=== PATIENT | male | born 1960 | race African-American/Black ===

== ENCOUNTER 2021-01-29 00:02 | Emergency (ER) | payer OTHER, BC ==
[2021-01-29 01:03] VITALS: BP 208/105; PULSE 75; TEMP 98.5; BMI 24.4
[2021-01-29] MEDS ORDERED: ACETAMINOPHEN 325 MG TABLET (FP) PO ONE (01:49)
== END 2021-01-29 02:48 | disposition home or self-care (01) ==
LOC: JER 00:02
DX: S09.90XA Unspecified injury of head, initial encounter (principal); W22.8XXA Striking against or struck by other objects, initial encounter
CPT/HCPCS: 70450-TC; 70486-TC; 72125-TC; 99284-25

== ENCOUNTER 2023-04-12 13:25 | Emergency (ER) | payer OTHER, BC ==
[2023-04-12 13:32] VITALS: RESP 16; TEMP 98.6; BMI 23.7
[2023-04-12] MEDS ORDERED: ACETAMINOPHEN 325 MG TABLET (FP) ONE (14:45)
[2023-04-12] MEDS: ACETAMINOPHEN 325 MG TABLET (FP) PO ONE (14:55)
[2023-04-12 16:23] VITALS: BP 134/76; PULSE 97
== END 2023-04-12 16:24 | disposition home or self-care (01) ==
LOC: JER 13:25
DX: K40.90 Unilateral inguinal hernia, without obstruction or gangrene, not specified as recurrent (principal); R10.31 Right lower quadrant pain; R22.2 Localized swelling, mass and lump, trunk
CPT/HCPCS: 99283-25

== ENCOUNTER 2023-09-07 01:39 | Emergency (ER) | payer OTHER, BC ==
[2023-09-07 01:48] VITALS: BP 139/85; PULSE 82; RESP 20; TEMP 98.4; BMI 24.3
[2023-09-07] MEDS ORDERED: LIDOCAINE 5% TOPICAL PATCH ONE (03:33)
[2023-09-07] MEDS ORDERED: ACETAMINOPHEN 500 MG TABLET (FP) ONE (03:35)
[2023-09-07] MEDS: LIDOCAINE 5% TOPICAL PATCH TP ONE (03:41)
[2023-09-07] MEDS: ACETAMINOPHEN 500 MG TABLET (FP) PO ONE (03:42)
[2023-09-07 03:52] LABS: EPI CELLS 14 /uL (0-25.1); HYALINE CASTS 4 /uL (0-3.1); PH,URINE 5.5 (5.0-8.0); URINE APPEARANCE CLEAR; URINE BACTERIA 0 /uL (0-1359); URINE BILIRUBIN NEGATIVE (NEGATIVE); URINE COLOR YELLOW; URINE GLUCOSE (UA) NEGATIVE (NEGATIVE); URINE KETONE TRACE (NEGATIVE); URINE LEUK ESTERASE TRACE (NEGATIVE); URINE NITRITE NEGATIVE (NEGATIVE); URINE PROTEIN 1+ (NEGATIVE); URINE RBC 23 /uL (0-23.9); URINE WBC 87 /uL (0-25.8)
[2023-09-07] MEDS ORDERED: LIDOCAINE PATCH REMOVAL MC SCH (22:00)
== END 2023-09-07 05:21 | disposition home or self-care (01) ==
LOC: JER 01:39
DX: N39.0 Urinary tract infection, site not specified (principal); M54.50 Low back pain, unspecified; R39.15 Urgency of urination; R30.0 Dysuria; M79.18 Myalgia, other site
CPT/HCPCS: 81003; 87086; 99283-25

== ENCOUNTER 2024-09-22 17:49 | Emergency (ER) | payer OTHER, BC ==
[2024-09-22 17:55] VITALS: RESP 18; BMI 22.6
[2024-09-22 19:03] LABS: ABSOLUTE IMMATURE GRANULOCYTES 0.02 x10^3/uL (0.0-0.031); BASOPHILS # 0.03 x10^3/uL (0.01-0.08); EOSINOPHIL % 0.5 % (0.8-7.0); EOSINOPHILS # 0.04 x10^3/uL (0.04-0.54); MCHC 32.3 g/dl (32.3-36.5); MEAN CELL VOLUME 98.3 fl (79.0-92.2); MEAN PLT VOLUME 10.1 fl (9.4-12.4); MONOCYTE # 0.69 x10^3/uL (0.30-0.82); MONOCYTE % 8.8 % (5.3-12.2); RDW 13.1 % (12.2-16.4)
[2024-09-22] MEDS ORDERED: ACETAMINOPHEN INJECTION 100 ML ONE (19:40)
[2024-09-22] MEDS: ACETAMINOPHEN 1000 MG/100 ML BAG IVPB ONE (19:45)
[2024-09-22 20:18] LABS: EPI CELLS 1 /uL (0-25.1); HYALINE CASTS 0 /uL (0-3.1); URINE APPEARANCE CLEAR; URINE BACTERIA 2 /uL (0-1359); URINE BILIRUBIN NEGATIVE (NEGATIVE); URINE COLOR YELLOW; URINE GLUCOSE (UA) 3+ (NEGATIVE); URINE KETONE NEGATIVE (NEGATIVE); URINE LEUK ESTERASE NEGATIVE (NEGATIVE); URINE NITRITE NEGATIVE (NEGATIVE); URINE PROTEIN NEGATIVE (NEGATIVE); URINE RBC 8 /uL (0-23.9); URINE UROBILINOGEN 1.0 mg/dL (0.2-1.0); URINE WBC 1 /uL (0-25.8)
[2024-09-22 20:23] LABS: GLUCOSE,RANDOM 107.0 mg/dL (74-106)
[2024-09-22 20:24] LABS: CO2 25.0 mmol/L (21-32)
[2024-09-22 20:33] LABS: ALK PHOS 87.0 U/L (45-117); CREATININE 1.5 mg/dL (0.55-1.3); SGOT/AST 15.0 U/L (15-37); SGPT/ALT 15.0 U/L (13-61); TOT PROT 7.6 g/dl (6.4-8.2)
[2024-09-22] MEDS: SODIUM CHLORIDE 0.9% 500 ML INFUS.BAG IV ONE (21:31)
[2024-09-22 22:02] VITALS: BP 128/73; PULSE 71; TEMP 97.6
[2024-09-23 03:28] LABS: HCV DIAGNOSTIC IN-HOUSE W/RFLX NON-REACTIVE (NONREACTIVE)
[2024-09-23 03:29] LABS: HIV INTERPRETATION NEGATIVE (NEGATIVE)
== END 2024-09-22 23:10 | disposition home or self-care (01) ==
LOC: JER 17:49
PROC: 3E033NZ Introduction of Analgesics, Hypnotics, Sedatives into Peripheral Vein, Percutaneous Approach (ICD-10-PCS; principal; 2024-09-22)
DX: K40.90 Unilateral inguinal hernia, without obstruction or gangrene, not specified as recurrent (principal); R10.31 Right lower quadrant pain
CPT/HCPCS: 36415; 74177-TC; 80053; 81003; 85025; 86803; 87086; 87389; 99285-25

== ENCOUNTER → 2024-10-13 | Day surgery (SDC) | payer OTHER, BC ==
[2024-10-11 11:40] VITALS: BMI 23.0
[~2024-10-13] MED LIST: DEXAMETHASONE SOD PHOSPHATE 4 MG/1 ML VIAL ONE; HEPARIN NA (PORCINE) 5,000 UNITS/ML 1ML VIAL ONE; KETOROLAC TROMETHAMINE 30 MG/1 ML VIAL ONE; LACTATED RINGERS SOLUTION 1,000 ML IV SCH; LIDOCAINE HCL/PF 2% SDV 5ML VIAL ONE; MIDAZOLAM HCL 2 MG/2 ML SINGLE DOSE VIAL ONE; ONDANSETRON 4 MG/2 ML VIAL IVPUSH PRN; ONDANSETRON 4 MG/2 ML VIAL ONE; PROMETHAZINE HCL 25 MG/1 ML VIAL IVPB PRN; PROPOFOL 20 ML ONE; ROCURONIUM BROMIDE 50 MG/5 ML SYRINGE ONE; SUCCINYLCHOLINE CHLORIDE 200 MG/10 ML SYRINGE ONE; cefOXitin SODIUM 2 GM VIAL (RESTRICTED TO ID) IVPB ONE
[2024-10-13] MEDS: cefOXitin SODIUM 1 GM VIAL (RESTRICTED TO ID) IVPB ONE ×2 (12:30)
[2024-10-13] MEDS: BUPIVACAINE HCL/PF 0.25% (2.5MG/ML) 10 ML VIAL IJ ONE ×3 (12:44)
[2024-10-13 16:11] VITALS: RESP 18; TEMP 97.7
[2024-10-13 17:19] VITALS: BP 140/84; PULSE 88
== END | disposition home or self-care (01) ==
LOC: JASU-SURG 06:13
PROVIDERS: ATTEND Surgery
PROC: 8E0W4CZ Robotic Assisted Procedure of Trunk Region, Percutaneous Endoscopic Approach (ICD-10-PCS; 2024-10-13)
PROC: 0YU54JZ Supplement Right Inguinal Region with Synthetic Substitute, Percutaneous Endoscopic Approach (ICD-10-PCS; principal; 2024-10-13 11:00)
DX: K40.90 Unilateral inguinal hernia, without obstruction or gangrene, not specified as recurrent (principal)
CPT/HCPCS: 49650; S2900; 82962; 86850; 86900; 86901; 94760; C1781